=== PATIENT | female | born 1980 | race Caucasian/White ===

== ENCOUNTER 2016-09-14 16:03 | Emergency (ER) | payer OTHER, MEDICAID ==
[2016-09-14 16:19] VITALS: BP 109/66
== END 2016-09-14 17:53 | disposition left against medical advice (07) ==
LOC: ED 16:03
DX: Z53.21 Procedure and treatment not carried out due to patient leaving prior to being seen by health care provider (principal)

== ENCOUNTER 2018-11-09 18:37 | Emergency (ER) | payer OTHER ==
[~2018-11-09] VITALS: Ht 152.4 cm; Wt 93.9 kg
[2018-11-09 19:15] VITALS: BP 143/83; Ht 152.4 cm; Wt 93.9 kg
== END 2018-11-09 20:39 | disposition home or self-care (01) ==
LOC: ED 18:37
DX: S93.401A Sprain of unspecified ligament of right ankle, initial encounter (principal); F31.9 Bipolar disorder, unspecified; Z86.73 Personal history of transient ischemic attack (TIA), and cerebral infarction without residual deficits; X58.XXXA Exposure to other specified factors, initial encounter; Y93.89 Activity, other specified; Y92.89 Other specified places as the place of occurrence of the external cause; Y99.8 Other external cause status